=== PATIENT | male | born 1945 | race Caucasian/White ===

== ENCOUNTER 2016-09-07 05:24 | Day surgery (SDC) | payer OTHER ==
--- NOTE | ~2016-09-07 | OP ---
Record Of Operation [facility] [address] [place]. [address] NAME: ZAKI RICHTER : 43 STATUS : [facility]#: [id number] AGE: 71 ADM/REG DATE : 09/07/16 MR#: [id number] REPORT SERV DATE: 09/07/16 DICTATED BY: LUIS ARNOLD DATE: 09/07/16 REPORT STATUS : Draft TRANSCRIBED BY: MODL DATE: 09/07/16 DATE OF PROCEDURE: 09/07/2016 PREOPERATIVE DIAGNOSIS: Metastatic colon cancer. POSTOPERATIVE DIAGNOSIS: Metastatic colon cancer. PROCEDURES: 1. Port-A-Cath placement. 2. Use of ultrasound for placement of a needle and a central vein. 3. Use of fluoroscopy for placing a catheter and a central vein in correct position. COMPLICATIONS: None. IV FLUIDS: Per Anesthesia records. ESTIMATED BLOOD LOSS: Minimal. PROCEDURE IN DETAIL: Preoperatively, the patient was definitively identified in the holding area. It was confirmed that a signed consent was on the chart. The patient was then transferred to the operating room and placed supine on the operating table with both arms tucked. Appropriate padding to all pressure points after appropriate surgical pause, IV sedation was administered by anesthesia team. The patient was prepped and draped in a normal sterile fashion. Perioperative antibiotics were also administered by anesthesia team. With the use of ultrasound, the right internal jugular vein was interrogated and appeared to be completely patent. The patient was placed in slight Trendelenburg position and local anesthetic was infused in an appropriate location in the neck. A transverse 5 mm incision was performed sharply and the supplied needle was introduced into the central vein under direct ultrasound guidance. The wire was advanced through the needle and a picture was taken to document correct placement in the vein. The patient was then placed in steep reverse Trendelenburg position. After infusion of additional local anesthetic, a transverse 3 cm incision on the right chest wall was created about 2 fingerbreadths below the midpoint of the right clavicle. Two pockets were then created in standard fashion. I infused additional local anesthetic along the intended tunneling path and then the supplied tunneler was used to pass the catheter from inferiorly to superiorly without difficulty. It was trimmed at an angle and then the dilator was used over the wire. Unfortunately, the first dilator had some sort of defect in it and buckled in the center. We removed this dilator, got a second kit and a second dilator worked just fine over the wire. The catheter was then placed through the dilator in standard fashion to about 20 cm. The dilator was removed and we used fluoroscopy to manipulate the catheter to the cavoatrial junction. It was then trimmed to appropriate size and attached with the supplied grommet to the Port-A-Cath in standard fashion. Two 2-0 Prolene sutures were placed to prevent the Port-A-Cath twisting and it was then placed in the pocket prepared for it where it laid without twisting or tension. It cynthia and flushed easily. A final fluoroscopic image was taken to confirm Record Of Operation [address] [place]. [address] NAME: ZAKI RICHTER : 43 STATUS : [facility]#: [id number] AGE: 71 ADM/REG DATE : 09/07/16 MR#: [id number] REPORT SERV DATE: 09/07/16 DICTATED BY: LUIS ARNOLD DATE: 09/07/16 REPORT STATUS : Draft TRANSCRIBED BY: AYAD DATE: 09/07/16 correct placement and no kinking. The dermis of the large incision was closed with 3-0 Vicryl in an interrupted buried fashion. The skin of both incisions were then closed with 4 0 Monocryl followed by two layers of Dermabond. The Port-A-Cath was accessed and covered with gauze for chemotherapy this afternoon. Postprocedure chest x-ray is pending at this time. DEVIN/WELLINGTONL Luis Arnold MD / [id number] CC: MD KEYSHAWN Haney FREDERICO
[~2016-09-07 05:24] MED LIST: ACET500CAP PO; ASAB PO; BEN25 PO; CIP5 PO; CIP7 PO; CORDARONE PO; COREG3 PO; CYANOCOBALAMIN PO; FISH OIL OTC PO; FISH OIL PO; FISH OIL1200 MG PO; FISH-EPA1000 MG PO; FLAG500TAB PO; FLONASE NAS; GLUCPH PO; LIPITOR80 MG PO; MIRALAX POWDER1 PKT PO; MIRALAXPKT PO; MIRAPEX125 PO; NEUR600 PO; NORCO1 TA1 PO; OXYCOD PO; PLAVIX PO; SPIRIVA INH; TYLENOL W CODEINE PO; VASERETIC PO; VASERETIC10 PO; VITAMIN B-12 OTC PO; [UNRECOGNIZED DRUG - OTHER] PO
[2016-09-07 06:52] LABS: BUN (BLOOD UREA NITROGEN) 23 MG/DL (6-23); CHLORIDE, SERUM 105 MMOL/L (96-112); CO2 (CARBON DIOXIDE) 28 MMOL/L (24-34); CREATININE 1.63 MG/DL (0.70-1.30); GFR AFRICAN AMERICAN 48 ML/MIN (>=60); GFR NON AFRICAN AMERICAN 41 ML/MIN (>=60); GLUCOSE, SERUM 100 MG/DL (60-99); POTASSIUM, SERUM 4.9 MMOL/L (3.5-5.3); SODIUM, SERUM 138 MMOL/L (135-148)
[2016-09-07 06:53] LABS: CALCIUM, SERUM 9.6 MG/DL (8.5-10.4)
[2016-12-17] MEDS ORDERED: VASERETIC10 PO (16:44)
[2016-12-17] MEDS ORDERED: HALF81 PO (16:45)
[2016-12-17] MEDS ORDERED: FISH OIL1200 MG PO (16:45)
== END 2016-09-07 17:17 | disposition home or self-care (01) ==
LOC: SDC 05:24
PROVIDERS: Surgery
PROC: 05HY33Z Insertion of Infusion Device into Upper Vein, Percutaneous Approach (ICD-10-PCS; 2016-09-07)
PROC: 0JH60XZ Insertion of Tunneled Vascular Access Device into Chest Subcutaneous Tissue and Fascia, Open Approach (ICD-10-PCS; principal; 2016-09-07 07:15)
DX: C18.1 Malignant neoplasm of appendix (principal); I10 Essential (primary) hypertension; I71.4 Abdominal aortic aneurysm, without rupture; I73.9 Peripheral vascular disease, unspecified; E78.00 Pure hypercholesterolemia, unspecified; N42.9 Disorder of prostate, unspecified; H91.90 Unspecified hearing loss, unspecified ear; F41.9 Anxiety disorder, unspecified; Z87.442 Personal history of urinary calculi; Z91.030 Bee allergy status; Z79.82 Long term (current) use of aspirin; Z79.899 Other long term (current) drug therapy; Z98.890 Other specified postprocedural states; K64.9 Unspecified hemorrhoids; Z90.49 Acquired absence of other specified parts of digestive tract; Z90.79 Acquired absence of other genital organ(s)
CPT/HCPCS: 71010; 76000; 77001; 80048; 93005; A9270-GY; C1751; J0690; J2405; J3010; Q9967